=== PATIENT | male | born 1970 | race African-American/Black ===

== ENCOUNTER 2025-06-05 08:04 | Outpatient (CLI) | payer BC, SELFPAY ==
--- NOTE | ~2025-06-05 | MR_ITS ---
EXAMINATION: MR knee LT wo con DATE: 06/05/2025 08:43 INDICATION: acute pain of left knee TECHNIQUE: Magnetic resonance imaging (MRI) of the left knee was performed without intravenous contra st. Sequences included axial PD-weighted FS FSE, coronal PD-weighted FSE and PD-weighted FS FSE, sagi ttal PD-weighted FSE, and sagittal T2-weighted FS FSE. COMPARISON: None. FINDINGS: Medial compartment: Severe full-thickness cartilage loss in the medial compartment. Degenerative signal and volume loss i n the medial meniscus. Complex tear of the posterior horn involving apical and oblique undersurface c omponents with extensive fraying. Small oblique tear of the body, extending to the superior surface. Mild medial extrusion. Moderate osteophytosis. Lateral compartment: Mild diffuse cartilage thinning, with partial thickness cartilage signal abnormality, focal near full -thickness cartilage loss on the MFC and lateral plateau. Moderate osteophytosis. Radial tear of the anterior horn. Patellofemoral compartment: Mild cartilage thinning and signal abnormality. Moderate osteophytosis. Retinacula intact. Ligaments and tendons: Abnormal signal superficial and deep to the MCL. The ACL, PCL and LCL are intact. Mild chronic appear ing thickening of the quadriceps tendon. Mild chronic appearing thickening of the patellar tendon, po ssibly sequela of [place]-Schlatter disease. Fluid: Moderate volume joint fluid. Moderate sized Jaimes's cyst. Osseous/other: Marrow edema in the medial compartment. Quadriceps enthesopathy. Osteophytosis of the tibial spine. F ragmentation of the anterior tibial tuberosity, possibly sequela of [place]-Schlatter's disease. Mild edema in the suprapatellar and infrapatellar fat as can be seen with mild impingement. IMPRESSION: Tears of the posterior horn and body, medial meniscus, in a background of significant degenerative ch anges. Radial tear of the anterior horn, lateral meniscus. Partial MCL tear. Tricompartmental osteoarthritis, severe in the medial compartment. Moderate volume knee joint effusion. Jaimes's cyst. Reviewed, dictated and finalized at location K. IMPRESSION: Tears of the posterior horn and body, medial meniscus, in a background of signi ficant degenerative changes. Radial tear of the anterior horn, lateral meniscus. Partial MCL tear. Tricompartmental osteoarthritis, severe in the medial compartment. Moderate volume knee joint effusion. Jaimes's cyst.
== END 2025-06-05 08:05 | disposition home or self-care (01) ==
PROVIDERS: PCP Nurse Practitioner; Visit Provider Nurse Practitioner
DX: S83.242A Other tear of medial meniscus, current injury, left knee, initial encounter (principal); S83.282A Other tear of lateral meniscus, current injury, left knee, initial encounter; S83.412A Sprain of medial collateral ligament of left knee, initial encounter; M17.12 Unilateral primary osteoarthritis, left knee; M25.462 Effusion, left knee; M71.22 Synovial cyst of popliteal space [Baker], left knee
CPT/HCPCS: 73721